=== PATIENT | female | born 1960 | race Caucasian/White ===

== ENCOUNTER 2022-05-03 12:15 | Outpatient (CLI) | payer BC, SELFPAY ==
--- NOTE | 2022-05-03 13:00 | CRLHL7_ITS ---
For Patients: As a result of the Century Cures Act, medical imaging exams and procedure reports are released immediately into your electronic medical record. You may view this report before your referring provider. If you have questions, please contact your health care provider. DXA BONE MINERAL DENSITY STUDY Current height (in): 66.0 Weight (lb): 130.0 Menopause age: 49 Ethnicity: White 1. Have you had a previous hip or vertebral fracture? No. 2. Have you had any fractures during your adult life which did not result from significant trauma (e.g., auto accident)? No. 3. Did either of your parents have a hip fracture? No. 4. Do you smoke? No. 5. Have you ever taken Glucocorticoids? Yes. 6. Do you have rheumatoid arthritis? No. 7. Do you have secondary osteoporosis? No. 8. Do you drink 3 or more alcoholic drinks per day? No. 9. Are you being treated for osteoporosis? No. 10. Have you ever taken any of the following medications: Actonel, Evista, Fosamax, Miacalcin, Reclast, Boniva, Forteo, HRT (i.e. estrogen/hormone therapy), Protelos, Prolia, Vitamin D, Calcium, other ??? please specify. ANSWER: Yes, Vitamin D, calcium. 11. Do you have any of the following medical conditions: Anorexia or bulimia, asthma or emphysema, end stage renal disease, hyperparathyroidism, any seizure disorders, cancer, inflammatory bowel diseases, hysterectomy, other ??? please specify. ANSWER: Yes, Asthma or emphysema, cancer, inflammatory bowel diseases. 12. What was your maximum height (inches)? 66.5 13. Do you perform weight bearing exercise regularly? No. 14. Do you regularly consume dairy products? Yes. 15. Do you drink caffeinated beverages? No. 16. At what age did your period start? 12 17. Are you premenopausal? No. 18. How many full term pregnancies have you had? 0 19. Have you ever missed your period for more than 6 months in a row (not including or menopause)? No. TECHNIQUE: Bone mineral density study was performed using the Topic. FINDINGS: The results of the study expressed as bone mineral density (BMD) are as follows: Lumbar spine L1to L4: BMD: 0.867 g/cm2. T-score: -1.6. Z-score: -0.1. Neck Left: BMD: 0.626 g/cm2. T-score: -2.0. Z-score: -0.6. Right: BMD: 0.620 g/cm2. T-score: -2.1. Z-score: -0.7. Total Left: BMD: 0.773 g/cm2. T-score: -1.4. Z-score: -0.3. Right: BMD: 0.766 g/cm2. T-score: -1.4. Z-score: -0.4. IMPRESSION: Osteopenia. *Comparison exams done prior to 02/2020 were performed on different unit, DataPad. COMPARISON: Compared with scan of 06/17/2014 the bone mineral density has decreased by 14.3 percent at the spine and increased by 0.1 percent at the hip. FRAX 10-year Fracture Risk Major Osteoporotic Fracture: 15 percent Hip Fracture: 2.5 percent Reported Risk Factors: [place] () Neck BMD = 0.620, BMI = 21.0, glucocorticoids. Sylvester Shanks M.D. Diagnostic Radiologist [email or web address] DSM/pjt PT/Dictated by: Sylvester Shanks MD @ 05/03/2022 12:57:00 PM (Electronically Signed)
--- NOTE | 2022-05-03 13:40 | CRLHL7_ITS ---
For Patients: As a result of the Century Cures Act, medical imaging exams and procedure reports are released immediately into your electronic medical record. You may view this report before your referring provider. If you have questions, please contact your health care provider. BILATERAL MAMMOGRAM WITH COMPUTER-AIDED DETECTION 05/03/2022 TECHNIQUE: CC and MLO views were obtained. These mammographic images have been obtained using full-field digital technique. These mammographic images were interpreted with the benefit of computer-aided detection. COMPARISON FILM: 10/15/17, 08/25/09. FINDINGS: The breasts are heterogeneously dense, which may obscure small masses IMPRESSION: There is no radiographic evidence for malignancy. ASSESSMENT: BI-RADS Category 1: Negative RECOMMENDATION: Routine screening mammogram in 1 year. A lay language report of this examination will be provided to the patient. Sylvester Shanks M.D. Diagnostic Radiologist [email or web address] ADRIANA/chandrika / be/Dictated by: Sylvester Shanks MD @ 05/04/2022 9:28:00 AM (Electronically Signed)
== END 2022-05-03 12:16 | disposition home or self-care (01) ==
LOC: RAD 12:15
PROVIDERS: PCP Physician Assistant Medical; Visit Provider Physician Assistant Medical
DX: Z12.31 Encounter for screening mammogram for malignant neoplasm of breast (principal); R92.2 Inconclusive mammogram; Z13.820 Encounter for screening for osteoporosis; M85.89 Other specified disorders of bone density and structure, multiple sites
CPT/HCPCS: 77063; 77067; 77080

== ENCOUNTER 2022-05-11 12:45 | Outpatient (CLI) | payer BC, SELFPAY ==
--- NOTE | 2022-05-11 13:00 | MR_ITS ---
[facility] [address] [facility] [address] Phone:?[phone] Fax:?[phone] Referring Physician Information: Tavo Nielsen [address] [place] [address] Phone:?[phone] Fax:?[phone] Patient:Silvia Kaplan Evens.O.B:?1960 Sex:?Female Phone:?[phone] [facility] MRN:?[id number] Exam Date:?05/11/2022 ? EXAM: MRI EXAMINATION OF THE LEFT SHOULDER CLINICAL INFORMATION: Left shoulder pain. No history of surgery to this area. Possible rotator cuff tear. TECHNICAL INFORMATION: Coronal STIR as well as axial and sagittal and coronal PD and T2-weighted images were acquired. INTERPRETATION: Bones: There is no Hill-Sachs impaction deformity. No other evidence for an occult fracture or osseous contusion. There is no other bone marrow edema pattern. Rotator Cuff: Series 4 image 10 demonstrates a 4 mm undersurface partial- thickness tear involving the far anterior supraspinatus tendon insertion which appears to involve one half to two thirds of the tendon fiber thickness. The infraspinatus tendon is intact without tear or significant tendinopathy. The teres minor tendon is intact. The subscapularis tendon is intact. No appreciable rotator cuff muscle belly atrophy. Coracoacromial arch: There is no discrete subacromial osseous spur. The bony acromiohumeral interval is measuring 5 to 6 mm. There is no thickening identified of the coracoacromial ligament. Acromioclavicular joint: Minimal/early AC joint DJD with dorsal synovial hypertrophy. No deformity of the underlying supraspinatus tendon. There is a mild appearance of fluid and edema signal within the subacromial/subdeltoid bursa areas. Biceps tendon: The long head biceps tendon is intact and nondisplaced from the bicipital groove. No evidence for a tendon tear or appreciable changes of tendinopathy. Glenohumeral joint and labrum: There is a tiny glenohumeral joint effusion. No discrete loose body within the joint. Osteochondral surfaces appear relatively preserved. No discrete SLAP tear. No other definite evidence for labral tear. There is no evidence for a paralabral ganglion cyst. There is abnormal increased signal intensity, thickening and indistinctness of the inferior glenohumeral capsule. Soft tissue edema signal identified all along the capsule. Some additional soft tissue thickening within the rotator cuff interval. CONCLUSION: 1. MRI findings are in keeping with adhesive capsulitis. 2. There is a small 4 mm undersurface partial tear involving the far anterior supraspinatus tendon insertion, involving one half to two thirds of the tendon fiber thickness. 3. Mild to moderate narrowing of the acromiohumeral interval, with mild subacromial/subdeltoid bursitis. 4. Unremarkable and intact long head biceps tendon. 5. No evidence for glenohumeral chondromalacia. No definite labral tear. KES Electronically signed on 05/11/2022 2:35:00 PM by Te Jain M.D.
== END 2022-05-11 12:46 | disposition home or self-care (01) ==
LOC: MRI 12:46
PROVIDERS: PCP Physician Assistant Medical; Visit Provider Physician Assistant Medical
DX: M25.512 Pain in left shoulder (principal); M75.02 Adhesive capsulitis of left shoulder; S43.492A Other sprain of left shoulder joint, initial encounter; M75.52 Bursitis of left shoulder
CPT/HCPCS: 73221

== ENCOUNTER 2023-11-26 12:18 | Outpatient (CLI) | payer BC, SELFPAY | END 2023-11-26 12:19 | disposition home or self-care (01) | PROVIDERS: PCP Physician Assistant Medical; Visit Provider Emergency Medicine | DX: R10.9 Unspecified abdominal pain (principal); R63.4 Abnormal weight loss | CPT/HCPCS: 80076; 83690; 84443; 86140 ==

== ENCOUNTER 2023-12-10 13:30 | Outpatient (CLI) | payer BC, SELFPAY ==
[2023-12-10 14:35] VITALS: BP 130/77; PULSE 108
--- NOTE | 2023-12-10 14:51 | W.PM.STED ---
Stress Test Note Date Date of test: 12/10/23 Providers Primary care provider: Sarika Nazario Stress test physician: Maxim Thayer Stress Test Note Stress test ordered: Stress Echo Indication for test: Shortness of breath, increased troponin. Stress test medicine: None Results discussion: Patient is a very nice 62-year-old female presents for the above test after discussion the risks benefits and side effects in review of the cardiac stress test medical history form she would like to proceed. Pretest EKG shows normal sinus rhythm, ventricular rate is 114 blood pressure 125/77. Standard Selvin protocol is employed over a time course of 7 minutes 49 seconds, and she achieved a metabolic equivalent of 9.3 Mets. Maximum heart rate was 173, with a target predicted rate of 130%. She had some fatigue but overall had no chest pain shortness of breath or no anginal equivalent symptoms. Test is terminated because of fatigue. Review of this test showed no significant ST wave changes suggestive of ischemia, there were no dysrhythmias. And she recovered normally in the recovery. Impression: Negative electrographic portion of stress echo, conditioning was felt to be moderate to good Follow up suggested: We will await cardiology input on the echo portion, no evidence of ischemia on the electrographic portion, she recovered normally and left this testing facility in good condition
== END 2023-12-10 13:31 | disposition home or self-care (01) ==
LOC: STRESS 13:31
PROVIDERS: PCP Physician Assistant Medical; Visit Provider Family Medicine
DX: R06.02 Shortness of breath (principal); R79.89 Other specified abnormal findings of blood chemistry; R00.0 Tachycardia, unspecified; R07.9 Chest pain, unspecified
CPT/HCPCS: 93016; 93325; 93351

== ENCOUNTER 2024-01-21 08:15 | Outpatient (CLI) | payer BC, SELFPAY | END 2024-01-21 08:16 | disposition home or self-care (01) | LOC: NFLDREF 01-22 06:37 | PROVIDERS: PCP Physician Assistant Medical; Referring Provider Physician Assistant Medical; Visit Provider Physician Assistant Medical | DX: K50.90 Crohn's disease, unspecified, without complications (principal); Z13.220 Encounter for screening for lipoid disorders; Z13.21 Encounter for screening for nutritional disorder | CPT/HCPCS: 80061; 82306; 82607; 82728; 82947; 86703; 86803 ==

== ENCOUNTER 2024-01-22 07:37 | Outpatient (CLI) | payer BC, SELFPAY ==
--- NOTE | 2024-01-22 08:00 | CT_ITS ---
Patient: MARK PASTRANA Facility:?[facility] Patient ID:?[id number] Site Patient ID:?[id number]. Site :?1960 Study:?CT-Chest WITHOUT-01/22/2024 8:09:35 AM Ordering Physician:GO Final Report: INDICATION: Abnormal weight loss, former smoker, lightheadedness TECHNIQUE: CT chest without contrast. COMPARISON: 01/08/[address] FINDINGS: Lungs and pleura: Upper lung centrilobular emphysema. Hyperinflation. Postsurgical changes in the right lung apex. Stable 5 mm nodule in the associated scarring in the left lung apex. Stable 6 mm right upper lobe pulmonary nodule image 33 series 3. There are a few scattered micronodules that are also unchanged. No new nodules. Heart and vasculature: Heart size is normal. Thoracic aorta and pulmonary artery are normal in caliber. Lymph nodes/mediastinum: No mediastinal, hilar, or axillary adenopathy. Thyroid gland is normal. Chest wall: No masses. Upper abdomen: Cyst in the left hepatic lobe. Bones: Unremarkable for age. IMPRESSION: 1. Emphysema. 2. Stable benign-appearing pulmonary nodules. 3. No evidence for malignancy. Please note that all CT scans at this facility use dose modulation, iterative reconstruction, and/or weight-based dosing when appropriate to reduce radiation dose to as low as reasonably achievable. Dictated by Petr Warren MD @ 01/22/2024 9:37:30 AM Signed by:?Petr Warren MD @01/22/2024 9:37:30 AM (Electronic Signature)
--- NOTE | 2024-01-22 09:15 | MR_ITS ---
Patient: MARK PASTRANA Facility:?[facility] Patient ID:?[id number] Site Patient ID:?[id number]. Site :?1960 Study:?MRI-Neck Angio W/ and W/O Cont 20 CC DOATERM-01/22/2024 10:26:46 AM Ordering Physician:?YANIQUE PLUMMER Final Report: INDICATION: Dizziness. TECHNIQUE: Mcut-fg-btmgup, T1 fat saturated, and postcontrast MRA images of the neck. COMPARISON: None. FINDINGS: The innominate and subclavian arteries are widely patent. The common carotid arteries are widely patent. The internal carotid arteries are widely patent. The left vertebral artery is dominant and the right vertebral artery is hypoplastic. The vertebral arteries are widely patent. No arterial dissection. IMPRESSION: Unremarkable MRA of the neck. Dictated by Ceasar Lindsey MD @ 01/22/2024 5:19:20 PM Signed by:?Ceasar Lindsey MD @01/22/2024 5:19:20 PM (Electronic Signature)
--- NOTE | 2024-01-22 10:15 | MR_ITS ---
Patient: MARK PASTRANA Facility:?[facility] Patient ID:?[id number] Site Patient ID:?[id number]. Site :?1960 Study:?MRI-Head MRA W/O-01/22/2024 10:26:19 AM Ordering Physician:?YANIQUE PLUMMER Final Report: INDICATION: Dizziness. TECHNIQUE: Hrpi-dr-kinsrg MRA images of the head. COMPARISON: None. FINDINGS: The internal carotid, middle cerebral, and anterior cerebral arteries are widely patent. The left vertebral artery is dominant and the right vertebral artery is hypoplastic, functionally terminating as the right posterior inferior cerebellar artery. The vertebral, basilar, and posterior cerebral arteries are widely patent. No intracranial aneurysm or high-flow vascular malformation. IMPRESSION: Unremarkable MRA of the head. Dictated by Ceasar Lindsey MD @ 01/22/2024 5:17:45 PM Signed by:?eCasar Lindsey MD @01/22/2024 5:17:45 PM (Electronic Signature)
== END 2024-01-22 07:38 | disposition home or self-care (01) ==
LOC: CT 07:39
PROVIDERS: PCP Physician Assistant Medical; Visit Provider Physician Assistant Medical
DX: R63.4 Abnormal weight loss (principal); J43.9 Emphysema, unspecified; R91.8 Other nonspecific abnormal finding of lung field; K50.90 Crohn's disease, unspecified, without complications; R42 Dizziness and giddiness; Z87.891 Personal history of nicotine dependence
CPT/HCPCS: 70544; 70549; 71250; A9575

== ENCOUNTER 2024-02-21 13:43 | Outpatient (CLI) | payer BC, SELFPAY ==
--- NOTE | 2024-02-21 14:00 | CRLHL7_ITS ---
For Patients: As a result of the Century Cures Act, medical imaging exams and procedure reports are released immediately into your electronic medical record. You may view this report before your referring provider. If you have questions, please contact your health care provider. BILATERAL SCREENING MAMMOGRAM WITH COMPUTER-AIDED DETECTION AND TOMOSYNTHESIS TECHNIQUE: CC and MLO views were obtained. These mammographic images have been obtained using full-field digital technique. These mammographic images were interpreted with the benefit of computer-aided detection. Breast Tomosynthesis was used in this interpretation. COMPARISON FILM: 05/03/22, 10/15/17, 08/25/09. FINDINGS: The breasts are heterogeneously dense, which may obscure small masses. IMPRESSION: There is no radiographic evidence for malignancy. ASSESSMENT: BI-RADS Category 2: Benign RECOMMENDATION: Routine screening mammogram in 1 year. A lay language report of this examination will be provided to the patient. Sylvester Shanks M.D. Diagnostic Radiologist [email or web address] SP/Dictated by: Sylvester Shanks MD @ 02/24/2024 10:55:00 AM (Electronically Signed)
== END 2024-02-21 13:44 | disposition home or self-care (01) ==
LOC: MAMMO 13:43
PROVIDERS: PCP Physician Assistant Medical; Visit Provider Physician Assistant Medical
DX: Z12.31 Encounter for screening mammogram for malignant neoplasm of breast (principal); R92.2 Inconclusive mammogram
CPT/HCPCS: 77063; 77067